=== PATIENT | female | born 1960 | race Two or more races ===

== ENCOUNTER 2019-11-16 08:15 | Inpatient (IN) | payer OTHER ==
[~2019-11-16] VITALS: Ht 162.6 cm; Wt 90.7 kg
[2019-11-16] MEDS ORDERED: VASOTEC5 MG PO (11:48)
[2019-11-23] MEDS ORDERED: DICLOFENAC POTA50 MG PO (11:50)
[2019-11-25] MEDS ORDERED: ELIQUIS2.5 MG PO (16:08)
[2019-11-25] MEDS ORDERED: DUI500 PO (16:08)
[2019-11-25] MEDS ORDERED: PERCOCET 5-3251 EACH PO (16:08)
== END 2019-11-25 18:13 | disposition home or self-care (01) | DRG 470 ==
LOC: O/R 11-23 05:47 → SURH 11-23 05:47
PROVIDERS: ADMIT Orthopaedic Surgery; ATTEND Orthopaedic Surgery
PROC: 3E0F7SF Introduction of Other Gas into Respiratory Tract, Via Natural or Artificial Opening (ICD-10-PCS; 2019-11-23)
PROC: 0SRD0J9 Replacement of Left Knee Joint with Synthetic Substitute, Cemented, Open Approach (ICD-10-PCS; principal; 2019-11-23 09:30)
DX: M17.12 Unilateral primary osteoarthritis, left knee (principal); D62 Acute posthemorrhagic anemia; I10 Essential (primary) hypertension; M81.0 Age-related osteoporosis without current pathological fracture